=== PATIENT | male | born 1980 | race Caucasian/White ===

== ENCOUNTER 2019-09-27 14:49 | Inpatient (IN) | payer MEDICARE, OTHER ==
[~2019-09-27] VITALS: Ht 190.5 cm; Wt 100.9 kg
[2019-10-01] VITALS (10 sets, daily range): BP systolic 114–178; BP diastolic 71–89; PULSE 90–111; TEMP 97–98.4
--- NOTE | 2019-10-01 08:47 | NUR ---
Mother Abigail in the room and was also screened for Covid 19 and denies any signs or symptoms.
[2019-10-01 12:13] LABS: HEMOGLOBIN 11.7 g/dl (13.5-18.0)
[2019-10-01 12:22] LABS: HEMATOCRIT 35.7 % (42.0-52.0)
[2019-10-01 16:51] LABS: HEMATOCRIT 37.1 % (42.0-52.0)
--- NOTE | 2019-10-01 19:35 | NUR ---
Patient had verbalzied complaints of having some chest pain, describing it as if someone was sitting on his chest. EKG order placed, Dr. Akins notified and asked that hospitalist be consulted. Did placed call to who ordered troponin and that order be placed for consult. Did explain this to mother and patient. Report has been given to oncoming nurse.
--- NOTE | 2019-10-01 19:51 | NUR ---
Patient arrived to room at 1415 accompanied by staff and mother. Patient was verbalizing complaints of dizziness, and stated he did not want any more of the medication he took earlier. Mother reports he is not used to taking much more than tylenol. He did complain of pain when coughing, was shown how to splint pillow on abdomen. Did observe skin color to be very pale. Spoke with Dr. Ahsby and was ordered to re-check hemoglobin at 1630 and to administer NS bolus. This was complete as ordered. Did notify Dr. Ashby of hemoglobin result. No treatment changes order. 1850, mother notified staff that patient was having chest pain, he described it as chest pressure. Did order EKG and notify Dr. Akins who requested hospitalist consult. Dr. Jones was notified. Report given to oncoming nurse.
[2019-10-02] VITALS (11 sets, daily range): BP systolic 125–148; BP diastolic 64–81; PULSE 81–102; TEMP 97.4–98.3
--- NOTE | 2019-10-02 04:23 | NUR ---
Patient complaining of chest pain at beginning of shift. EKG and troponin ordered. EKG showed sinus tachycardia and troponins were negative. IV Protonix ordered and administered. Patient continues to complain of pain, but refuses to take pain medication. Patient offered to be assisted on a walk and education provided regarding gas pain post-surgery. Patient declined walk stating it just hurt to bad. Verbalizes understanding about gas pain. Mother at bedside and verbalizes understanding as well. Galvan catheter in place and clear yellow urine is draining. Incisional dressings are clean, dry, and intact. Patient noted to belch, but states no passing of gas yet. Patient has rested well throughout the night. Will continue to monitor.
[2019-10-02 06:12] LABS: BASO % 0.1 % (0.0-2.0); GRAN % 86.6 % (42.2-75.2); HEMOGLOBIN 11.1 g/dl (13.5-18.0); LYMPH # 0.6 (1.2-3.4); LYMPH % 5.4 % (20.0-51.0); MEAN CELL VOLUME 87 fl (80.0-100.0); MEAN CORPUSCULAR HEMOGLOBIN 29 pg (27.0-31.0); MEAN CORPUSCULAR HGB CONC 33 g/dl (33.0-37.0); MEAN PLATELET VOLUME 11.7 fl (7.4-10.4); MONO # 0.9 (0.1-0.6); MONO % 7.7 % (1.7-9.3); PLATELET COUNT 321 K/mm3 (130-400); RED BLOOD COUNT 3.87 M/mm3 (4.20-5.60); REDCELL DISTRIBUTION WIDTH-CV 13.2 % (11.5-14.5)
[2019-10-02 06:17] LABS: HEMATOCRIT 33.6 % (42.0-52.0)
[2019-10-02 06:27] LABS: CALCIUM 8.5 mg/dL (8.4-10.2); CREATININE, serum 1.57 (0.66-1.25); POTASSIUM 4.1 mmol/L (3.4-5.0)
--- NOTE | 2019-10-02 10:11 | NUR ---
Jewelry Racker met with patient and his mother/caregiver, Abigail (ph#[phone]). Abigail reports she will answer questions for patient as he does not understand SW's questions. Abigail reports she is patient's legal guardian. EDSON reviewed guardianship paperwork that was executed in [place]. Abigail advised they have lived in [place], [place] since 2016. Abigail reports she gave a copy of guardianship paperwork to Dr. Ashby and the hospital. Patient sees Dr. Sunshine for primary care and his medications are obtained from [facility] in [place]. Abigail advised patient can bathe and dress independently but she is there to assist as needed. Abigail reports patient has a cognitive delay from multiple surgeries as a child. Abigail states they had testing done when patient turned 19 and she was established as a guardian at that time. EDSON spoke with Abigail about patient's insurance coverage. Abigail states patient receives social security disability and has Medicare. EDSON inquired if patient has ever applied for Medicaid and Abigail reports she wasn't aware of Medicaid. EDSON consulted Raúl Financial Counselor who will look into patient records to see if patient would qualify. EDSON to continue to follow.
--- NOTE | 2019-10-02 11:05 | NUR ---
PATIENT GOING DOWN TO OR FOR CHEST TUBE PLACEMENT. CONSENT ON CHART. MOTHER AT BEDSIDE.
--- NOTE | 2019-10-02 11:32 | NUR ---
Plastic Surgery Nurse spoke with Raúl Financial Counselor who advised patient would qualify for Medicaid and will follow up with patient and Abigail to complete application.
--- NOTE | 2019-10-02 12:03 | NUR ---
Follow up visit from the case management manager. No needs right now.
--- NOTE | 2019-10-02 16:00 | NUR ---
PATIENT HR INCREASING INTO THE 120'S, ON TELE, ASYMPTOMATIC. B/P STABLE. GAVE HOME DOSE OF CARDIZEM
--- NOTE | 2019-10-02 23:58 | NUR ---
PATIENT DOING WELL TONIGHT. ALERT AND ORIENTED. DENIES PAIN. STATES HE HAS SOME PRESSURE TO HIS BLADDER, AND RAMON BAG IS EMPTY. APPEARS TO BE POSITIONAL AND DRAINS UPON MANIPULATION OF TUBE. PATIENT STATES THE PRESSURE IS RELIEVED. ABD MIDLINE IS CDI WITH GAUZE AND TEGADERM. X4 ABD LAP SITES CDI WITH BANDAIDS. R CHEST TUBE IN PLACE, DRAINING BLOODY OUTPUT. IVF INFUSING TO R AC WITHOUT ISSUE. HAD X1 JELLO AND A POPSICLE. NO FURTHER NEEDS AT THIS TIME. WILL CONTINUE TO MONITOR.
[2019-10-03] VITALS (7 sets, daily range): BP systolic 116–149; BP diastolic 67–83; PULSE 75–94; TEMP 97.5–98.4
--- NOTE | 2019-10-03 03:34 | NUR ---
PATIENT COMPLAINING OF SHARP PAIN TO LUQ, RIGHT BETWEEN LAP SITES. DISCUSSED WITH CHARGE NURSE. CHEST TUBE WORKING PROPERLY. PRN ULTRAM GIVEN AND SCHEDULED TYLENOL. WILL CONTINUE TO MONITOR.
[2019-10-03 06:06] LABS: BASO % 0.3 % (0.0-2.0); EOS % 0.2 % (0-4.0); GRAN # 7.7 (1.4-6.5); GRAN % 76.5 % (42.2-75.2); LYMPH # 1.6 (1.2-3.4); LYMPH % 15.5 % (20.0-51.0); MEAN CELL VOLUME 89 fl (80.0-100.0); MEAN CORPUSCULAR HGB CONC 32 g/dl (33.0-37.0); MEAN PLATELET VOLUME 11.9 fl (7.4-10.4); MONO # 0.7 (0.1-0.6); MONO % 7.1 % (1.7-9.3); PLATELET COUNT 243 K/mm3 (130-400); RED BLOOD COUNT 3.31 M/mm3 (4.20-5.60); REDCELL DISTRIBUTION WIDTH-CV 13.3 % (11.5-14.5)
[2019-10-03 06:10] LABS: HEMATOCRIT 29.5 % (42.0-52.0); HEMOGLOBIN 9.3 g/dl (13.5-18.0); MEAN CORPUSCULAR HEMOGLOBIN 28 pg (27.0-31.0)
[2019-10-03 06:21] LABS: CALCIUM 8.4 mg/dL (8.4-10.2); CREATININE, serum 1.58 (0.66-1.25); POTASSIUM 3.8 mmol/L (3.4-5.0)
--- NOTE | 2019-10-03 08:50 | NUR ---
Marek, urology PA here to see patient.
--- NOTE | 2019-10-03 10:08 | NUR ---
Galvan catheter out at this time.
--- NOTE | 2019-10-03 10:09 | NUR ---
Patient alert and oriented, answers questions appropriately. See assessment. Chest tube to right chest wall to -20mg suction, bubbling noted in canister. Dressing to chest tube CDI. Lungs sounds decreased in bases and RUL, cough and deep breath encouraged. Abdomen with midline and lap sites with dressing CDI, no redness or drainage noted. Post op exercises reviewed with patient. No c/o at this time.
--- NOTE | 2019-10-03 12:57 | NUR ---
Gonzalo Ashby and Blake here to see patient.
--- NOTE | 2019-10-03 14:55 | NUR ---
Chest tube remains to LCS, minimal output noted in chest tube canister.
[2019-10-04 03:17] VITALS: BP 120/66; PULSE 74; TEMP 98
--- NOTE | 2019-10-04 05:16 | NUR ---
Patient has rested well throughout the night. Chest tube has minimal output. Chest tube to water seal at 0430 this morning. Mother continues to be at bedside. Utilizes urinal for voiding. Dressings to abdomen are clean, dry, and intact. Patient denies pain throughout the night. Dressing to right chest tube also clean, dry, and intact. Will continue to monitor.
[2019-10-04 06:36] LABS: BASO # 0.1 (0.0-0.2); BASO % 0.6 % (0.0-2.0); EOS # 0.1 (0.0-0.7); EOS % 1.2 % (0-4.0); GRAN # 5.6 (1.4-6.5); GRAN % 68.2 % (42.2-75.2); LYMPH # 1.9 (1.2-3.4); LYMPH % 22.8 % (20.0-51.0); MEAN CELL VOLUME 89 fl (80.0-100.0); MEAN CORPUSCULAR HEMOGLOBIN 29 pg (27.0-31.0); MEAN CORPUSCULAR HGB CONC 32 g/dl (33.0-37.0); MEAN PLATELET VOLUME 11.7 fl (7.4-10.4); MONO # 0.5 (0.1-0.6); MONO % 6.6 % (1.7-9.3); PLATELET COUNT 290 K/mm3 (130-400); RED BLOOD COUNT 3.49 M/mm3 (4.20-5.60); REDCELL DISTRIBUTION WIDTH-CV 13.1 % (11.5-14.5)
[2019-10-04 06:38] LABS: HEMATOCRIT 30.9 % (42.0-52.0)
[2019-10-04 06:46] LABS: CALCIUM 8.7 mg/dL (8.4-10.2); CREATININE, serum 1.48 (0.66-1.25); POTASSIUM 4.2 mmol/L (3.4-5.0)
[2019-10-04 08:15] VITALS: BP 122/73; PULSE 80; TEMP 98.1
--- NOTE | 2019-10-04 08:23 | NUR ---
BETSEY Jara with urology here to see patient.
--- NOTE | 2019-10-04 09:53 | NUR ---
Patient alert and oriented, answers questions appropriately. See assessment. Chest tube to right chest with dressing CDI, chest tube to dependent drainage, scant amount of bloody drainage noted in canister. Lungs CTA. VSS. Abdomen soft, non tender, non distended. Bowel sounds active x4 quads. +Flatus. Lap and midline incisions with edges well approximated, no redness or drainage noted. Voiding adequate amounts. No c/o urinary burning, frequency or hesitancy. No other c/o at this time.
[2019-10-04 12:02] VITALS: BP 138/76; PULSE 79; TEMP 98.2
--- NOTE | 2019-10-04 12:25 | NUR ---
Dr Lozano here to see patient, chest tube removed per
--- NOTE | 2019-10-04 15:23 | NUR ---
EDSON's and Financial Counselor, Raúl, met with the patient and mother, Abigail, and witnessed her signature for the Medicaid application. Abigail also provided EDSON with a copy of the patient's guardianship paperwork, which designate her at the patient's guardian. EDSON placed the document in the patient's chart. EDSON to continue to follow as needed.
[2019-10-04 16:22] VITALS: BP 128/71; PULSE 89; TEMP 98.3
[2019-10-04 21:04] VITALS: BP 134/72; PULSE 77; TEMP 98
--- NOTE | 2019-10-04 22:49 | NUR ---
PATIENT DOING WELL TONIGHT. ALERT AND ORIENTED. STATES HE HAS PAIN TO ABD MIDLINE INCISION WHEN HE COUGHS BUT OTHERWISE HAS NO PAIN. EDUCATION DONE REGARDING SPLINTING ABD. ABD MIDLINE IS CDI, ASH INTACT. X4 ABD LAP SITES CDI, ASH INTACT. TOOK SCHEDULED MEDICATIONS WITHOUT ISSUE, REFUSED SENOKOT. STATES HE HAD LOOSE STOOL EARLIER TODAY. R AC INT FLUSHES EASILY. CHEST TUBE SITE CDI WITH VASELINE DRESSING. NO FURTHER NEEDS AT THIS TIME. CALL LIGHT WITHIN REACH. WILL CONTINUE TO MONITOR.
[2019-10-04 23:54] VITALS: BP 133/83; PULSE 84; TEMP 97.9
[2019-10-05 03:36] VITALS: BP 124/69; PULSE 75; TEMP 98.2
[2019-10-05 07:06] VITALS: BP 134/76; PULSE 84; TEMP 98.1
--- NOTE | 2019-10-05 08:00 | NUR ---
Denies pain except with coughing. Abdominal midline incision CDI with brady intact. Voiding large amounts yellow urine.
[2019-10-05 11:54] VITALS: BP 133/71; PULSE 96; TEMP 97.8
--- NOTE | 2019-10-05 16:00 | NUR ---
Ambulated length of halls with staff. No complaints.
[2019-10-05 16:04] VITALS: BP 143/72; PULSE 95; TEMP 97.9
[2019-10-05 19:39] VITALS: BP 126/72; PULSE 86; TEMP 97.9
--- NOTE | 2019-10-05 22:36 | NUR ---
PATIENT DOING WELL TONIGHT. ALERT AND ORIENTED. DENIES PAIN. ABD MIDLINE CDI, ASH INTACT. X4 ABD LAP SITES CDI WELL. R AC INT PATENT AND FLUSHES WITHOUT ISSUE. R CHEST TUBE SITE CDI WITH VASELINE DRESSING. TOOK SCHEDULED MEDS WITHOUT ISSUE. SENOKOT HELD DUE TO DIARRHEA. NO FURTHER NEEDS AT THIS TIME. WILL CONTINUE TO MONITOR.
[2019-10-05 23:30] VITALS: BP 116/64; PULSE 845; PULSE 85; TEMP 97.6
[2019-10-06 03:22] VITALS: BP 128/68; PULSE 72; TEMP 98
[2019-10-06 08:55] VITALS: BP 131/74; PULSE 76; TEMP 98.1
[2019-10-06 12:38] VITALS: BP 129/71; PULSE 72; TEMP 98.1
--- NOTE | 2019-10-06 16:00 | NUR ---
Incisional pain controlled with scheduled meds. Rare non-productive cough. Ambulated in halls without complaint. Dismissed to home per w/c with family.
== END 2019-10-06 16:00 | disposition home or self-care (01) | DRG 657 ==
LOC: INPTSU 10-01 07:56 → SURG 10-01 07:56
PROVIDERS: Nurse Anesthetist, Certified Registered; Physician Assistant; ADMIT Urology
PROC: 0TT04ZZ Resection of Right Kidney, Percutaneous Endoscopic Approach (ICD-10-PCS; principal; 2019-10-01 11:00)
PROC: 0W9930Z Drainage of Right Pleural Cavity with Drainage Device, Percutaneous Approach (ICD-10-PCS; 2019-10-02)
DX: C64.1 Malignant neoplasm of right kidney, except renal pelvis (principal); J93.9 Pneumothorax, unspecified; J98.11 Atelectasis; K21.9 Gastro-esophageal reflux disease without esophagitis; R07.89 Other chest pain; F79 Unspecified intellectual disabilities; F03.90 Unspecified dementia, unspecified severity, without behavioral disturbance, psychotic disturbance, mood disturbance, and anxiety; Z90.49 Acquired absence of other specified parts of digestive tract
CPT/HCPCS: 99231-AI; 99232-AI; A4314; A7041; A9284; C9113; J0330; J0690; J1100; J2370; J2405; J2704; J3010; J7030; J7060; J7120